=== PATIENT | male | born 2000 | race Caucasian/White ===

== ENCOUNTER 2020-05-26 15:59 | Emergency (ER) | payer BC ==
[2020-05-26 16:16] VITALS: PULSE 66
--- NOTE | 2020-05-26 17:07 | EDM.PDOC ---
ED HPI GENERAL MEDICAL PROBLEM - General Chief Complaint: Head Injury Stated Complaint: HEAD AND SHOULDER INJURY Time Seen by Provider: 05/26/20 16:49 Source of Information: Reports: Patient, RN Notes Reviewed History Limitations: Reports: No Limitations - History of Present Illness INITIAL COMMENTS - FREE TEXT/NARRATIVE: Patient is a 20-year-old male who presents to the ED for the evaluation of a head and shoulder injury. Patient states he was standing on some scaffolding, that was roughly about 4 feet off the ground, when he lost his balance, and ended up falling backwards onto the ground on his back. Patient states that his head did seem to shoot back at this time. He did not have any loss of consciousness or nor did he blackout. Patient states that he is having most of his pain in the posterior left shoulder, and there is some mild skin abrasions on his shoulder as well. There is an area on his right occipital scalp, that is oozing blood, but no active bleeding. This area is roughly 1 cm in length. Patient is unsure of his last tetanus booster. He denies any other sick-like symptoms, fever/chills, cough/shortness of breath, he states that he is in good health has no past medical history takes no regular medications. Regarding his arm pain it does not radiate anywhere, he has no numbness or tingling distal to the injury. He is still able to move the arm, but states is very painful to do so. He would rate the pain at a 6 or 7 out of 10. He did not take any medications prior to coming to the ER. Left Shoulder Pain Score (Numeric/FACES): 7 - Related Data Allergies Allergy/AdvReac Type Severity Reaction Status Date / Time No Known Allergies Allergy Verified 10/06/15 08:37 Home Meds: Home Meds . [No Known Home Meds] 05/26/20 [History] Past Medical History - Past Health History Medical/Surgical History: Denies Medical/Surgical History Social & Family History - Tobacco Use Smoking Status *Q: Never Smoker - Caffeine Use Caffeine Use: Reports: Soda - Recreational Drug Use Recreational Drug Use: No ED ROS GENERAL - Review of Systems Review Of Systems: Comprehensive ROS is negative, except as noted in HPI. ED EXAM, HEAD INJURY - Physical Exam Exam: See Below Exam Limited By: No Limitations General Appearance: Alert, WD/WN, No Apparent Distress Head: Normocephalic, Scalp Lacerations (right occipital scalp 1 cm surface abrasion that is oozing blood, but no active bleeding). No: Scalp Tenderness, Calloway's Sign, Facial Lacerations, Facial Tenderness, Raccoon Eyes Nexus Criteria: No: Posterior, Midline Cervical Tenderness, Evidence of Intoxication, Altered Level of Consciousness, Focal Neurological Deficit, Painful Distraction Injuries Eyes: Bilateral Eye: EOMI, Normal Inspection, PERRL Ears: Normal External Exam, Normal Canal, Hearing Grossly Normal, Normal TMs Nose: Normal Inspection Throat/Mouth: Normal Inspection, Normal Lips, Normal Teeth, Normal Gums, Normal Oropharynx, Normal Voice, No Airway Compromise Neck: Non-Tender, Full Range of Motion, Normal Alignment, Normal Inspection Respiratory: No Respiratory Distress, Lungs Clear, Normal Breath Sounds, No Accessory Muscle Use, Chest Non-Tender Cardiovascular: Normal Peripheral Pulses, Regular Rate, Rhythm, No Murmur GI/Abdominal Exam: Normal Bowel Sounds, Soft, Non-Tender, No Distention, No Mass Extremities: Normal Inspection, Normal Range of Motion (painful to do so with left arm, but does have normal ROM), Normal Capillary Refill Neurologic: No Motor/Sensory Deficits, Alert, Normal Mood/Affect, Oriented x 3 Skin: Normal Color, Warm/Dry - [place] Coma Score Best Eye Response ([place]): (4) Open Spontaneously Best Verbal Response ([place]): (5) Oriented Best Motor Response ([place]): (6) Obeys Commands [place] Total: 15 Course - Vital Signs Last Recorded V/S: Last Vital Signs Temp 97.4 F 05/26/20 16:15 Pulse 66 05/26/20 16:15 Resp 20 05/26/20 16:15 BP 144/88 H 05/26/20 16:15 Pulse Ox 97 05/26/20 16:15 - Orders/Labs/Meds Orders: Active Orders 24 hr Category Date Time Status DME for Discharge [COMM] Routine Oth 05/26/20 18:08 Ordered - Re-Assessments/Exams Free Text/Narrative Re-Assessment/Exam: 05/26/20 17:07 Patient presents to the ED for the evaluation of his head and shoulder injury. Scalp abrasion will require no laceration repair as it is very superficial. Patient will get a shoulder x-ray to rule out bony injury. He states his pain is okay at this time is not requesting anything for pain medication. 05/26/20 18:11 X-ray is done, and demonstrates no acute fracture or bony abnormality. There is a minimally elevated distal clavicle at the acromioclavicular joint, which is stable from old plain film study taken in January 2011. Departure - Departure Time of Disposition: 18:08 Disposition: Home, Self-Care 01 Condition: Good Clinical Impression: Injury of left shoulder Qualifiers: Encounter type: initial encounter Qualified Code(s): S49.92XA - Unspecified injury of left shoulder and upper arm, initial encounter Head injury Qualifiers: Encounter type: initial encounter Qualified Code(s): S09.90XA - Unspecified injury of head, initial encounter - Discharge Information *PRESCRIPTION DRUG MONITORING PROGRAM REVIEWED*: No *COPY OF PRESCRIPTION DRUG MONITORING REPORT IN PATIENT KASIA: No Instructions: Head Injury, Adult, [id number] Referrals: PCP,None [Primary Care Provider] - Forms: ED Department Discharge Additional Instructions: You have been evaluated in the ED for your head injury and left shoulder injury. Your x-ray demonstrated no acute fracture or other bony abnormalities of your left shoulder. The wound on your head did not need repair at today's visit, this might lose a little bit over the next day or 2, but should stop bleeding sooner rather than later. You might have some bloody show on your pillowcase tonight, but should get better by tomorrow. Please use ice as tolerated to the affected areas. Please try to elevate the affected area to relieve swelling. You were provided with a sling for your left arm, please try to use as little as possible and do range of motion exercises with the shoulder to help prevent frozen shoulder syndrome. You may take Tylenol 500 mg or ibuprofen 600mg q6 hrs for pain relief. Please do so until you have a tolerable level of pain with activity. Do not exceed 4000mg Tylenol or 3200mg ibuprofen in a 24 hour time period. Please return to ED if your symptoms should change or worsen. Sepsis Event Note (ED) - Evaluation Sepsis Screening Result: No Definite Risk - Focused Exam Vital Signs: Vital Signs Temp Pulse Resp BP Pulse Ox 05/26/20 16:15 97.4 F 66 20 144/88 H 97 - My Orders Last 24 Hours: My Active Orders 05/26/20 18:08 DME for Discharge [COMM] Routine - Assessment/Plan Last 24 Hours: My Active Orders 05/26/20 18:08 DME for Discharge [COMM] Routine
--- NOTE | 2020-05-26 18:07 | CR ---
Left shoulder: 3 views left shoulder were obtained. Acromioclavicular joint shows minimal elevation of the clavicle in relation to the acromion process which is similar to prior plain film study of 01/13/11. Glenohumeral joint is normal. No fracture or other abnormality is appreciated. Impression: 1. Minimally elevated distal clavicle at the acromioclavicular joint which is stable from old plain film study. 2. Left shoulder exam is otherwise unremarkable. Diagnostic code #2 Study was dictated in MDT
[2020-05-26 18:36] VITALS: BP 132/81
== END 2020-05-26 18:20 | disposition home or self-care (01) ==
LOC: JD.ED 15:59
DX: S01.01XA Laceration without foreign body of scalp, initial encounter (principal); S49.92XA Unspecified injury of left shoulder and upper arm, initial encounter; W17.89XA Other fall from one level to another, initial encounter
CPT/HCPCS: 73030-26-LT; 73030-LT; 99283-25